=== PATIENT | female | born 1960 | race Caucasian/White ===

== ENCOUNTER 2019-04-04 10:38 | Day surgery (SDC) | payer MEDICAID ==
[~2019-04-04] VITALS: Ht 170.2 cm; Wt 90.7 kg
[~2019-04-04 10:38] MED LIST: ACETYLCHOLINE CHLORIDE INTRAOCULAR SOLUTION 1:100 ELECTROLYTE DILUENT IO ONE; BALANCED SALT IRRIG SOLN 15ML ONE; BALANCED SALT IRRIG SOLN COMB1 500ML OP ONE; CIPROFLOXACIN 0.3% OPHTH SOLN 2.5ML ONE; LIDOCAINE HCL/PF 2% 20 MG/ML 10ML VIAL ONE; NEO/POLYMYX B SULF/DEXAMETH OPHTH OINT 3.5GM ONE; TETRACAINE 0.5% OPHTH DROPS 4ML ONE
[2019-04-04] MEDS ORDERED: TROPICAMIDE 1% OPHTH DROPS 15ML LEFTEYE NR (10:45)
[2019-04-04] MEDS ORDERED: CYCLOPENTOLATE HCL 1% OPHTH DROPS 2ML LEFTEYE NR (10:45)
[2019-04-04] MEDS ORDERED: PHENYLEPHRINE HCL 10% OPHTH DROPS 5ML LEFTEYE NR (10:45)
[2019-04-04] MEDS ORDERED: LACTATED RINGERS 1,000 ML IV SCH (11:55)
[2019-04-04] MEDS ORDERED: HYALURONATE SODIUM 14 MG/ML 0.85ML SYRINGE IO ONE (13:08)
[2019-04-04] MEDS ORDERED: GLIP2.5T3 PO (13:23)
[2019-04-04] MEDS ORDERED: METO-396 PO (13:23)
[2019-04-04] MEDS ORDERED: SIMV40TA5 PO (13:23)
[2019-04-04] MEDS ORDERED: METF-416 PO (13:23)
[2019-04-04] MEDS ORDERED: AMLO5TAB88 PO (13:23)
[2019-04-04] MEDS ORDERED: ASPI-1393 PO (13:23)
[2019-04-04] MEDS ORDERED: CETI10TA6 PO (13:23)
[2019-04-04] MEDS ORDERED: GABA-290 PO (13:23)
[2019-04-04] MEDS ORDERED: BENA1TAB19 PO (13:23)
[2019-04-04] MEDS ORDERED: FENTANYL CITRATE/PF 50MCG/ML 2ML VIAL ONE (13:25)
[2019-04-04] MEDS ORDERED: MIDAZOLAM HCL 2 MG/2 ML VIAL ONE ×2 (13:25→13:42)
[2019-04-04] MEDS ORDERED: KETOROLAC 30MG/ML VIAL ONE (13:54)
[2019-04-04] MEDS ORDERED: ACETAMINOPHEN 500MG TABLET PO ONE (14:15)
== END 2019-04-04 15:35 | disposition home or self-care (01) ==
LOC: OR 10:38
PROVIDERS: ATTEND Ophthalmology
DX: E11.36 Type 2 diabetes mellitus with diabetic cataract (principal); H25.012 Cortical age-related cataract, left eye; E78.5 Hyperlipidemia, unspecified; I10 Essential (primary) hypertension; E66.3 Overweight; Z79.899 Other long term (current) drug therapy; Z79.84 Long term (current) use of oral hypoglycemic drugs; Z96.651 Presence of right artificial knee joint; Z79.82 Long term (current) use of aspirin; Z98.891 History of uterine scar from previous surgery; Z98.890 Other specified postprocedural states; Z90.710 Acquired absence of both cervix and uterus; Z68.31 Body mass index [BMI] 31.0-31.9, adult
CPT/HCPCS: 66984; 82962; J1885; J2250; J3010; J3490; V2632

== ENCOUNTER → 2022-05-12 | Day surgery (SDC) | payer MEDICAID ==
[~2022-05-12] VITALS: Ht 170.2 cm; Wt 86.2 kg
[~2022-05-12] MED LIST changes: -ACETYLCHOLINE CHLORIDE INTRAOCULAR SOLUTION 1:100 ELECTROLYTE DILUENT IO ONE; +AMLO5TAB88 PO; +ASPI-1497 PO; -BALANCED SALT IRRIG SOLN 15ML ONE; +BENA1TAB19 PO; +CETI10TA6 PO; -CIPROFLOXACIN 0.3% OPHTH SOLN 2.5ML ONE; +CYCLOPENTOLATE HCL 1% OPHTH DROPS 2ML RIGHTEYE NR; +FENTANYL CITRATE/PF 50MCG/ML 2ML VIAL ONE; +GABA-290 PO; +GLIP2.5T3 PO; +HYALURONATE SODIUM 10 MG/ML 0.55ML SYRINGE IO ONE; -LIDOCAINE HCL/PF 2% 20 MG/ML 10ML VIAL ONE; +METF-416 PO; +METO-396 PO; +MIDAZOLAM HCL 2 MG/2 ML VIAL ONE; -NEO/POLYMYX B SULF/DEXAMETH OPHTH OINT 3.5GM ONE; +PHENYLEPHRINE HCL 10% OPHTH DROPS 5ML RIGHTEYE NR; +SIMV-46 PO; +SODIUM CHLORIDE 0.9% 1,000 ML IV SCH; -TETRACAINE 0.5% OPHTH DROPS 4ML ONE; +TROPICAMIDE 1% OPHTH DROPS 15ML RIGHTEYE NR; +TRYPAN BLUE 0.5 ML DISP.SYRIN IO ONE
== END | disposition home or self-care (01) ==
LOC: OR 05:32
PROVIDERS: ATTEND Ophthalmology
DX: E11.36 Type 2 diabetes mellitus with diabetic cataract (principal); H25.89 Other age-related cataract; I10 Essential (primary) hypertension; E78.00 Pure hypercholesterolemia, unspecified; M19.90 Unspecified osteoarthritis, unspecified site; Z79.84 Long term (current) use of oral hypoglycemic drugs; Z79.899 Other long term (current) drug therapy; Z98.890 Other specified postprocedural states; Z20.822 Contact with and (suspected) exposure to COVID-19
CPT/HCPCS: 66984; 82962; 87426; C9803; J2250; J3010; J3490; V2632; Q9957